=== PATIENT | male | born 1970 | race Two or more races ===

== ENCOUNTER 2018-10-30 12:36 | Emergency (ER) | payer OTHER ==
[~2018-10-30] VITALS: Ht 175.3 cm; Wt 104.5 kg
[2018-10-30] MEDS ORDERED: OMEP10 PO (13:04)
[2018-10-30] MEDS ORDERED: LIDOCAINE 5% TRANSDERMAL PATCH TD ONE (13:30)
[2018-10-30] MEDS ORDERED: IBUPROFEN 600 MG TABLET PO ONE (13:30)
[2018-10-30 14:25] VITALS: BP 121/71
== END 2018-10-30 14:27 | disposition home or self-care (01) ==
LOC: EMS 12:38
DX: S16.1XXA Strain of muscle, fascia and tendon at neck level, initial encounter (principal); S39.012A Strain of muscle, fascia and tendon of lower back, initial encounter; F17.210 Nicotine dependence, cigarettes, uncomplicated; V49.40XA Driver injured in collision with unspecified motor vehicles in traffic accident, initial encounter; Y93.89 Activity, other specified; Y92.89 Other specified places as the place of occurrence of the external cause; Y99.8 Other external cause status